=== PATIENT | female | born 1975 | race Caucasian/White ===

== ENCOUNTER 2023-07-18 21:01 | Emergency (ER) | payer OTHER, SELFPAY ==
[2023-07-18 21:04] VITALS: BP 152/110
[2023-07-18 21:43] VITALS: BMI 36.7
--- NOTE | 2023-07-18 21:45 | ED.GENMED ---
History of Present Illness
General
Chief Complaint: Dental Problem
Source: patient
Exam Limitations: none
Time Seen by Provider: 07/18/23 21:17
Nursing documentation reviewed up to this point in time: agreed with
Travel History
Have you had any contact with someone who has COVID-19?: No
Do you have any symptoms of coronavirus? Fever > 100 degrees, chills, cough, shortness of breath, sore throat, loss of taste or smell, muscle aches, or headache?: No
History of Present Illness
History of Present Illness:
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
rinses, woke up around 6 PM from a nap with increased facial swelling
Patient recently diagnosed type 2 diabetes, started on metformin 2000 mg a day
Past History
Past History
ED Past Medical History: NIDDM and Other
ED Past Surgical History: None
Social History
Tobacco: Non-smoker
Alcohol: None
Drug: None
Living: with family
Employment: Employed
Family History
Family History: Negative Diabetes, Hypertension or CAD
Review of Systems
Review of Systems
All Other Systems: Not applicable
Constitutional: Denies fever or fatigue
EENT: Reports mouth pain and other (Dental pain facial swelling)
Phy Exam
Physical Exam
Physical Exam:
Physical Exam
General: no apparent distress, not acutely ill
Neck: Left-sided facial swelling, no trismus, tender to tap with some missing posterior oral lateral tooth and the second lower molar question small gum abscess no elevation of the tongue
Heart: s1/s2 regular rate and rhythm, no murmur. equal radial pulses.
Lungs: no acute respiratory distress.
Neuro: alert and oriented. no focal neurological deficits
Skin: no rash
Psychiatric: well kept. interactive and cooperative
Extremities: no edema.
Course
Vital Signs
Initial and Last Documented VS:
Initial Vital Signs
Temp Pulse Resp BP Pulse Ox
98.7 F 136 24 152/110 98
07/18/23 21:04 07/18/23 21:04 07/18/23 21:04 07/18/23 21:04 07/18/23 21:04
Last Documented Vital Signs
Temp Pulse Resp BP Pulse Ox
98.7 F 136 24 180/91 98
07/18/23 21:04 07/18/23 21:04 07/18/23 21:04 07/18/23 21:46 07/18/23 21:04
Procedures
Dentalgia
Dental Block: Infiltration
Bupivacaine 0.5%/Epi Dental cartridge administered?: Yes
Tooth Number: 18
Abcess drained?: Yes
Pt tolerated procedure well w/ no immediate adverse effects?: Yes
Other: 11. Blade large amount of pus patient tolerated well
MDM/Problems Addressed
Differential Diagnosis Includes:
Dental caries dental abscess
MDM/Problems Addressed:
Facial pain dental pain
Chronic conditions affecting care: DM
Acute Exacerbation and/or Progression of Chronic Illness: DM
*Pulse Oximetry
Patient hypoxic: no
*Critical Care Note
Total Time (30-74mins, 75-104mins- exclusive of procedures): Not Applicable
Update Note
Update Note:
Patient tolerated incision and drainage, only had 2 doses of Augmentin we will continue, follow-up with her dentist or oral surgery ER for worsening symptoms
ED Attending Note
-
Portions of this chart may have been created with voice recognition software.� Occasional wrong word or��sound alike� substitutions may have occurred due to the inherent limitations of voice recognition software.
Discharge Plan
Departure
Date of Disposition: 07/18/23
Time of Disposition: 22:00
Patient with high blood pressure during this ER visit?: No
Condition: Good
Covid-19: Not Applicable
Prescriptions:
No Action
cyclobenzaprine 10 MG tablet
10 mg PO HS
dextroamphetamine-amphetamine 10 MG tablet
10 mg PO DAILY
alprazolam 0.25 MG tablet
0.25 mg PO DAILY
dicyclomine 20 MG tablet
10 mg PO HS
lorazepam 2 MG tablet
2 mg PO HS
ranitidine HCl [Zantac] 150 MG tablet
300 mg PO HS
celecoxib 200 MG capsule
200 mg PO PRN PRN (Reason: pain)
metformin 500 MG tablet
500 mg PO PRN PRN (Reason: pt doesn't take on a reg basis)
cholecalciferol (vitamin D3) 50,000 UNIT capsule
50,000 unit PO WEEKLY
vortioxetine [Trintellix] 10 MG tablet
10 mg PO HS
Depo Injection
1 ml .EVERY 3 MONTHS
hydrocodone-acetaminophen 1 TABLET tablet
1 tab PO Q4HPRN PRN (Reason: pain) Qty: 25 0RF
Rx Instructions:
can increase to 2 every 4h for severe pain
albuterol sulfate [ProAir HFA] 90 mcg/actuation Hfa Aerosol Inhaler
1 puff INHALATION Q4HPRN PRN (Reason: shortness of breath) Qty: 8.5 0RF
doxycycline hyclate 100 mg capsule
100 mg PO BID Qty: 14 0RF
prednisone 50 mg Tablet
50 mg PO DAILY Qty: 5 0RF
Interventions
Interventions:
*Risk Screen - Suicide Last Done: 07/18/23 21:43
*General Assessment Last Done: 07/18/23 21:43
*Neglect/Abuse Screening Last Done: 07/18/23 21:43
ED- Fall Risk Assessment Last Done: 07/18/23 21:43
*ED COVID-19 Vaccine History Last Done: 07/18/23 21:43
Discharge Date and Time
Print Language: MONGOLIAN
[2023-07-18 21:46] VITALS: BP 180/91
[2023-07-18] MEDS: ROXICODONE 5 MG PO (22:51)
== END 2023-07-18 22:55 | disposition home or self-care (01) ==
LOC: EMR 21:01
PROVIDERS: EMERGENCY PHYSICIAN Emergency Medicine; FAMILY PHYSICIAN Nurse Practitioner Adult Health
DX: K04.7 Periapical abscess without sinus (principal); K08.89 Other specified disorders of teeth and supporting structures; R51.9 Headache, unspecified; E11.9 Type 2 diabetes mellitus without complications; E28.2 Polycystic ovarian syndrome; M79.7 Fibromyalgia; F41.9 Anxiety disorder, unspecified; E55.9 Vitamin D deficiency, unspecified; K58.9 Irritable bowel syndrome, unspecified; Z86.16 Personal history of COVID-19; Z87.11 Personal history of peptic ulcer disease; Z90.49 Acquired absence of other specified parts of digestive tract; Z88.1 Allergy status to other antibiotic agents; Z91.040 Latex allergy status
CPT/HCPCS: 99284; 64400; 41800

== ENCOUNTER 2023-07-19 17:34 | Emergency (ER) | payer OTHER, SELFPAY ==
[2023-07-19 17:35] VITALS: BP 138/94
--- NOTE | 2023-07-19 18:17 | ED.GENMED ---
History of Present Illness
General
Chief Complaint: Facial Problem
Source: patient
Exam Limitations: none
Time Seen by Provider: 07/19/23 18:00
Nursing documentation reviewed up to this point in time: agreed with
Travel History
Have you had any contact with someone who has COVID-19?: No
Do you have any symptoms of coronavirus? Fever > 100 degrees, chills, cough, shortness of breath, sore throat, loss of taste or smell, muscle aches, or headache?: No
History of Present Illness
History of Present Illness:
48-year-old female past medical history of migraines vertigo diabetes PCOS presenting to the emergency department today with concerns of ongoing dental abscess to the left mandible here yesterday for similar symptoms had this drained but worsened
today. Has taken 2 doses of Augmentin since. Some mild trouble swallowing some lightheadedness nausea.
Past History
Past History
ED Past Medical History: NIDDM and Other
ED Past Surgical History: None
Social History
Tobacco: Non-smoker
Alcohol: None
Drug: None
Living: with family
Employment: Employed
Family History
Family History: Negative Diabetes, Hypertension or CAD
Review of Systems
Review of Systems
Allergies reviewed?: Yes
All Other Systems: ROS reviewed and negative except as documented in HPI and ROS
Phy Exam
Physical Exam
Physical Exam:
GENERAL: Alert , in no apparent distress
EYE: pupils equal and reactive
NECK: Supple, no significant adenopathy.
ENT: Significant swelling to the left lateral mandibular region tenderness palpation to the area normal posterior pharynx no Kira's mild trismus o/p clr, mmm.
CARDIAC: Regular rate and rhythm .
LUNGS: Clear breath sounds bilaterally, no acute respiratory distress, no wheezes/rales/rhonchi
ABDOMEN: Soft, without focal tenderness, no r/g, no cvat
NEUROLOGICAL: Alert and oriented, no focal neuro deficits
SKIN: Warm and dry, skin intact.
MUSCULOSKELETAL: No edema, well perfused.
PSYCH: Normal and appropriate interaction.
Course
Orders/Labs/Results
Orders:
Orders
07/19/23 18:10
Ketorolac [Toradol] 30 mg IV NOW STA
07/19/23 18:16
BMP [Basic Metabolic Panel] Urgent
CBC/With Diff [Complete Blood Count/With Diff] Urgent
07/19/23 18:21
Ampicillin/Sulbactam 3 G [Unasyn] 3 gm 0.9% Sodium Chloride 100 ml [Nss] 100 ml IV NOW
07/19/23 18:59
Morphine Sulfate 4 mg IV NOW STA
Abnormal Lab Results
07/19/23
18:16
WBC 14.2 H 10^3/uL
(4.8-10.8)
MCH 31.6 H pg
(27.0-31.0)
Abs Immat Gran (auto) 0.1 H 10^3/uL
(0-0.05)
Absolute Neuts (auto) 10.0 H 10^3/uL
(1.4-6.5)
Absolute Monos (auto) 1.1 H 10^3/uL
(0.1-0.6)
Lymphocytes % 20.4 L %
(20.5-51.1)
Glucose 162 H mg/dl
(70-99)
07/19/23 18:16
07/19/23 18:16
Vital Signs
Initial and Last Documented VS:
Initial Vital Signs
Temp Pulse Resp BP Pulse Ox
99.8 F 108 16 138/94 97
07/19/23 17:35 07/19/23 17:35 07/19/23 17:35 07/19/23 17:35 07/19/23 17:35
Last Documented Vital Signs
Temp Pulse Resp BP Pulse Ox
98.9 F 105 20 122/71 97
07/19/23 19:37 07/19/23 19:37 07/19/23 19:37 07/19/23 19:37 07/19/23 19:37
Procedures
Incision/Drainage/Joint Aspiration
Left mandible:
Anethesia: 1% Lidocaine (2) and other (Inferior alveolar block)
Type of procedure: incise and aspiration
Nature of site: abscess
Description of abscess: greater than 3cm
Loculations broken up: Yes
How much fluid was obtained?: large amount
Fluid description: purulent and bloody
Treatment: left open for drainage
MDM/Problems Addressed
MDM/Problems Addressed:
48-year-old female presenting to the emergency department today with concerns of ongoing dental abscess drained yesterday but ongoing today. Now having lightheadedness nausea some mild trouble swallowing. Labs showing slight white count of 14.2
initial heart rate was elevated but improving after receiving some fluids and pain medication. Other labs unremarkable. Patient had a dental block placed and then incision and drainage of abscess to the left mandibular region. Swelling did not
improve able to fully open her mouth normal posterior pharynx. Patient was given IV dose of antibiotics and otherwise feels well for outpatient she was advised to return for any worsening or progressive symptoms.
*Critical Care Note
Total Time (30-74mins, 75-104mins- exclusive of procedures): Not Applicable
ED Attending Note
-
Portions of this chart may have been created with voice recognition software.� Occasional wrong word or��sound alike� substitutions may have occurred due to the inherent limitations of voice recognition software.
Discharge Plan
Departure
Patient Disposition: Home (Routine Discharge)
Date of Disposition: 07/19/23
Time of Disposition: 21:25
Patient with high blood pressure during this ER visit?: No
Condition: Good
Covid-19: Not Applicable
Discharge Problem:
Dental infection
Instructions: Tooth Abscess (DC)
Prescriptions:
No Action
metformin 500 MG tablet
1,000 mg PO BID
medroxyprogesterone [Depo-Provera Contraceptive] 150 mg/mL Suspension
150 mg IM [id number] Qty: 0
fluoxetine [Prozac] 40 mg Capsule
40 mg PO DAILY
oxcarbazepine 150 mg Tablet
150 mg PO BID
trazodone 50 mg Tablet
50 mg PO HS
ibuprofen 800 mg Tablet
800 mg PO BIDPRN PRN (Reason: mild pain)
metoprolol succinate [Toprol XL] 25 mg Tablet Extended Release 24 Hr
25 mg PO BID
dicyclomine [Bentyl] 10 mg Capsule
10 mg PO HS
amoxicillin-pot clavulanate [Augmentin] 875-125 mg Tablet
1 tab PO BID
cholecalciferol (vitamin D3) [Vitamin D3] 25 mcg (1,000 unit) Tablet
25 mcg PO DAILY
Referrals:
UNKNOWN - PT DOES,NOT KNOW [Family Provider] -
Activity Restrictions/Additional Instructions:
You came to the emergency department today with concerns of ongoing swelling to your jaw from a dental infection.. Here you had a reassuring assessment. Please continue taking antibiotics and return for any worsening symptoms. Otherwise please
make sure you control your sugar well and drink plenty of water.
Interventions
Interventions:
*Risk Screen - Suicide Last Done: 07/19/23 18:40
*General Assessment Last Done: 07/19/23 20:47
*Neglect/Abuse Screening Last Done: 07/19/23 18:40
*ED COVID-19 Vaccine History Last Done: 07/19/23 20:49
ED- Neurological Assessment Last Done: 07/19/23 19:38
ED-Skin Assessment Last Done: 07/19/23 19:39
Discharge Date and Time
Print Language: ITALIAN
[2023-07-19 18:23] LABS: % Basophils 0.6 % (0-2); % Immature Granulocytes 0.4 % (0-0.5); % Lymphocytes 20.4 % (20.5-51.1); % Monocytes 7.4 % (1.7-9.3); % Neutrophils 70.2 % (42.2-75.2); Absolute Basophils 0.1 10^3/uL (0-0.2); Absolute Eosinophils 0.1 10^3/uL (0-0.7); Absolute Immature Granulocytes 0.1 10^3/uL (0-0.05); Absolute Lymphocytes 2.9 10^3/uL (1.2-3.4); Absolute Monocytes 1.1 10^3/uL (0.1-0.6); Hematocrit 41.1 % (37.0-47.0); Hemoglobin 14.9 g/dL (12.0-16.0); Mean Corp Hgb Conc. 36.3 g/dL (33.0-37.0); Mean Corpuscular Hgb 31.6 pg (27.0-31.0); Mean Corpuscular Volume 87.1 fL (81.0-99.0); Mean Platelet Volume 9.4 fL (7.4-10.4); Nucleated Red Blood Cells % 0 %; Platelet Count 398 10^3/uL (130-400); Red Blood Cell Count 4.72 10^6/uL (4.20-5.40); Red Cell Dist. Width 12.5 % (11.5-14.5); White Blood Cell Count 14.2 10^3/uL (4.8-10.8)
[2023-07-19] MEDS: TORADOL 30 MG IV (18:23)
[2023-07-19] MEDS: UNASYN IV (18:27)
[2023-07-19 18:46] LABS: Blood Urea Nitrogen 11 mg/dl (7-17); Calcium 9.7 mg/dl (8.4-10.2); Carbon Dioxide 24 mmol/L (22-30); Chloride 106 mmol/L (98-107); Glucose 162 mg/dl (70-99); Potassium 3.9 mmol/L (3.5-5.1); Sodium 139 mmol/L (135-145); eGFR > 60.00
[2023-07-19] MEDS: MORPHINE SULFATE 4 MG IV (19:28)
[2023-07-19 19:37] VITALS: BP 122/71
[2023-07-19 21:29] VITALS: BP 119/75
[2023-07-19 22:08] VITALS: BP 119/75
== END 2023-07-19 22:09 | disposition home or self-care (01) ==
LOC: EMR 17:34
PROVIDERS: Physician Assistant; EMERGENCY PHYSICIAN Emergency Medicine
DX: K04.7 Periapical abscess without sinus (principal)
CPT/HCPCS: 99284; 64400; 96365; 96375 ×2; 41800; 80048; 85025

== ENCOUNTER 2023-07-21 01:04 | Inpatient (IN) | payer OTHER, SELFPAY ==
[2023-07-20 20:09] VITALS: BP 146/88
--- NOTE | 2023-07-20 20:48 | ED.GENMED ---
History of Present Illness
<CADENCE Ham - Last Filed: 07/20/23 23:58>
General
Chief Complaint: Swelling
Source: patient
Exam Limitations: none
Time Seen by Provider: 07/20/23 20:32
Travel History
Have you had any contact with someone who has COVID-19?: No
Do you have any symptoms of coronavirus? Fever > 100 degrees, chills, cough, shortness of breath, sore throat, loss of taste or smell, muscle aches, or headache?: No
History of Present Illness
History of Present Illness:
This is a 48 year old female that comes in with c/o left sided facial swelling. States that this is her third visit here. State that she was here Thursday, Thursday and now today. States that she has had the left lower gum drained and was place on
antibiotics. States that today she feels that the swelling is getting worse and is going down into her throat. State that swallowing is difficult. States that now she is nauseated and starting with a Migraine. States that she also has slight
Diarrhea and feels like her eye's cant focus. State that her temp at home was 99.9. Denies any chills, chest pain, SOB, abd pain, vomiting, urinary burning.
Past History
<CADENCE Ham - Last Filed: 07/20/23 23:58>
Past History
ED Past Medical History: NIDDM and Other (Migraines, Vertigo, IBS, Ulcers, PCOS, Vit D Def, Reactive airway, Tachycardia)
ED Past Surgical History: Cholecystectomy and (With tubal)
Social History
Tobacco: Former smoker
Alcohol: Occasional
Drug: None
Personal:
Living: with family
Employment: Employed
Family History
Family History: Negative Diabetes, Hypertension or CAD
Review of Systems
<CADENCE Ham - Last Filed: 07/20/23 23:58>
Review of Systems
All Other Systems: ROS reviewed and negative except as documented in HPI and ROS
Constitutional: Reports fever (low grade); Denies chills
EENT: Reports other (Left lower gum swelling)
Respiratory: Reports no symptoms; Denies cough
Cardiac: Reports no symptoms; Denies chest pain
ABD/GI: Reports nausea and diarrhea (Slight); Denies abdominal pain or vomiting
: Reports no symptoms; Denies dysuria, frequency or urgency
Musculoskeletal: Reports no symptoms
Skin: Reports no symptoms
Neurological: Reports headache and other (Feels like eyes can't focus)
Psychiatric: Reports no symptoms
Phy Exam
<CADENCE Ham - Last Filed: 07/20/23 23:58>
General Physical Exam
General Presentation: no apparent distress
General age: appears stated age
General Skin: warm and dry
General Habitus: normal
General Mental: alert
General Hydration: appears well hydrated
ENT Exam
ENT Exam: TM's normal, pharynx normal, neck supple and other (Left lower gum line swollen with facial swelling)
Eye Exam
Eye Exam: EOMI
Cardiovascular Exam
Cardiovascular Exam: regular rate/rhythm, no edema, no murmur and normal peripheral pulses
Pulmonary Exam
Pulmonary Exam: lungs clear, no respiratory distress, no rales, chest non tender, no crackles, no rhonchi, no wheezing and no cough
Gastrointestinal Exam
Gastrointestinal Exam: normal bowel sounds, non tender, soft, no organomegaly, no pulsatile mass and non distended
Musculoskeletal Exam
Musculoskeletal Exam: full ROM
Skin Exam
Skin Exam: normal color, warm/dry, no rash and no petechia
Psychiatric Exam
Psychiatric Exam: normal mood/affect
Scores
<CADENCE Ham - Last Filed: 05/27/24 23:58>
Heart Failure Risk
Heart Failure Risk Score: Not Applicable
Course
<CADENCE Ham - Last Filed: 07/20/23 23:58>
Orders/Labs/Results
Orders:
Orders
07/20/23 20:44
[address] Bones w Contrast CT [CT Facial Bones W/ Iv Contrast] Urgent
Comment: r/o abscess
Reason For Exam: Left sided facial swelling into thoat
Test Result ONCE
07/20/23 21:07
Complete Blood Count/With Diff Urgent
Comprehensive Metabolic Panel Urgent
HCG, Serum Qualitative Screen Urgent
Lactic Acid Urgent
07/20/23 23:52
Clindamycin 300 mg IVPB NOW Clindamycin Phosphate [Cleocin] 300 mg 0.9% Sodium Chloride [Nss] 50 ml IV NOW
Abnormal Lab Results
07/20/23
21:07
WBC 11.4 H 10^3/uL
(4.8-10.8)
MCH 31.4 H pg
(27.0-31.0)
Abs Immat Gran (auto) 0.1 H 10^3/uL
(0-0.05)
Absolute Neuts (auto) 7.8 H 10^3/uL
(1.4-6.5)
Absolute Monos (auto) 0.9 H 10^3/uL
(0.1-0.6)
07/20/23 21:07
07/20/23 21:07
Leukocytosis, HCG negative
Vital Signs
Initial and Last Documented VS:
Initial Vital Signs
Temp Pulse Resp BP Pulse Ox
98.6 F 99 20 146/88 98
07/20/23 20:09 07/20/23 20:09 07/20/23 20:09 07/20/23 20:09 07/20/23 20:09
Last Documented Vital Signs
Temp Pulse Resp BP Pulse Ox
98.6 F 89 20 112/70 98
07/20/23 20:09 07/20/23 23:35 07/20/23 20:09 07/20/23 23:35 07/20/23 23:35
<Collins Lu MD - Last Filed: 07/20/23 21:29>
Orders/Labs/Results
Orders:
Orders
07/20/23 20:44
[address] Bones w Contrast CT [CT Facial Bones W/ Iv Contrast] Urgent
Comment: r/o abscess
Reason For Exam: Left sided facial swelling into thoat
Test Result ONCE
07/20/23 21:07
Complete Blood Count/With Diff Urgent
Comprehensive Metabolic Panel Urgent
HCG, Serum Qualitative Screen Urgent
Lactic Acid Urgent
07/20/23 23:52
Clindamycin 300 mg IVPB NOW Clindamycin Phosphate [Cleocin] 300 mg 0.9% Sodium Chloride [Nss] 50 ml IV NOW
Abnormal Lab Results
07/20/23
21:07
WBC 11.4 H 10^3/uL
(4.8-10.8)
MCH 31.4 H pg
(27.0-31.0)
Abs Immat Gran (auto) 0.1 H 10^3/uL
(0-0.05)
Absolute Neuts (auto) 7.8 H 10^3/uL
(1.4-6.5)
Absolute Monos (auto) 0.9 H 10^3/uL
(0.1-0.6)
07/20/23 21:07
07/20/23 21:07
Vital Signs
Initial and Last Documented VS:
Initial Vital Signs
Temp Pulse Resp BP Pulse Ox
98.6 F 99 20 146/88 98
07/20/23 20:09 07/20/23 20:09 07/20/23 20:09 07/20/23 20:09 07/20/23 20:09
Last Documented Vital Signs
Temp Pulse Resp BP Pulse Ox
98.6 F 89 20 112/70 98
07/20/23 20:09 07/20/23 23:35 07/20/23 20:09 07/20/23 23:35 07/20/23 23:35
<CADENCE Ham - Last Filed: 07/20/23 23:58>
MDM/Problems Addressed
Differential Diagnosis Includes:
Dental abscess, facial abscess
MDM/Problems Addressed:
This is a 48 year old female that comes in with c/o left sided facial swelling. States that this is the third time here for the same thing. Patient is on antibiotics but feels that she is getting worse and that the swelling is going down into her
throat. States that she has difficulty swallowing.
Will get labs, CT facial for abscess.
Back into see patient. Explained that she would be admitted as the CT shows a facial cellulitis with abscess. Hospitalist notified. Will start IV antibiotics.
Chronic conditions affecting care: DM
Acute Exacerbation and/or Progression of Chronic Illness: DM
<CADENCE Ham - Last Filed: 07/20/23 23:58>
*Radiology
Radiology exam reviewed: radiology read reviewed (CT night hawk- Soft tissue swelling in the left face compatible with facial cellulitis. Abutting the left mandible and there is an 11X2mm rin-enhancing focus likely representing an early abscess. )
*Pulse Oximetry
Patient hypoxic: no
*EKG
Interpreted by ED Provider?: NA
Rate: EKG- N/A
*Critical Care Note
Total Time (30-74mins, 75-104mins- exclusive of procedures): Not Applicable
ED Attending Note
<CADENCE Ham - Last Filed: 07/20/23 23:58>
-
Portions of this chart may have been created with voice recognition software.� Occasional wrong word or��sound alike� substitutions may have occurred due to the inherent limitations of voice recognition software.
<Collins Lu MD - Last Filed: 07/20/23 21:29>
ED Attending Note
Patient seen and examined by attending physician: Yes
I performed the substantive portion of visit, reviewed & personally made and approve the management plan that is documented in note by myself or LAURA.: Yes
ED Attending Note:
48-year-old female had a cracked left lower molar that has been there for 4 months. However it was not causing pain until 2 to 3 days ago. She came and then had her periodontal abscess drained. Redrained yesterday. Has been on antibiotics.
Worsening symptoms today. Some swelling down towards the neck.
On exam patient is nontoxic in no distress. She has a cracked left lower posterior molar. There is gum swelling along the buccal mucosa with induration. She has mild swelling of the lower mandible. Mild swelling down towards the left neck.
There is no severe neck swelling she has no trismus no drooling no stridor. Speech is normal. Workup in progress including CT
Discharge Plan
Departure
Patient Disposition: Admit
Date of Disposition: 07/20/23
Time of Disposition: 23:56
Admit to: Med/Surg
Presentation/result/management discussed w/ accepting MD/DO: Hospitalist
Patient with high blood pressure during this ER visit?: No
Condition: Good
Covid-19: Not Applicable
Discharge Problem:
Cellulitis and abscess of face
Prescriptions:
No Action
metformin 500 MG tablet
1,000 mg PO BID
medroxyprogesterone [Depo-Provera Contraceptive] 150 mg/mL Suspension
150 mg IM [id number] Qty: 0
fluoxetine [Prozac] 40 mg Capsule
40 mg PO DAILY
oxcarbazepine 150 mg Tablet
150 mg PO BID
trazodone 50 mg Tablet
50 mg PO HS
ibuprofen 800 mg Tablet
800 mg PO BIDPRN PRN (Reason: mild pain)
metoprolol succinate [Toprol XL] 25 mg Tablet Extended Release 24 Hr
25 mg PO BID
dicyclomine [Bentyl] 10 mg Capsule
10 mg PO HS
amoxicillin-pot clavulanate [Augmentin] 875-125 mg Tablet
1 tab PO BID
cholecalciferol (vitamin D3) [Vitamin D3] 25 mcg (1,000 unit) Tablet
25 mcg PO DAILY
Referrals:
Tatyana Neumann CRNP [Family Provider] -
Interventions
Interventions:
*Risk Screen - Suicide Last Done: 07/20/23 20:09
*General Assessment Last Done: 07/20/23 20:09
*Neglect/Abuse Screening Last Done: 07/20/23 20:09
ED- Pulmonary Assessment Last Done: 07/20/23 23:36
ED-Skin Assessment Last Done: 07/20/23 21:18
Discharge Date and Time
Print Language: LUXEMBOURGISH
[2023-07-20 21:09] VITALS: BP 143/80
[2023-07-20 21:21] LABS: % Basophils 0.6 % (0-2); % Eosinophils 1.1 % (0-6); % Immature Granulocytes 0.4 % (0-0.5); % Lymphocytes 22.1 % (20.5-51.1); % Monocytes 7.5 % (1.7-9.3); % Neutrophils 68.3 % (42.2-75.2); Absolute Basophils 0.1 10^3/uL (0-0.2); Absolute Eosinophils 0.1 10^3/uL (0-0.7); Absolute Immature Granulocytes 0.1 10^3/uL (0-0.05); Absolute Lymphocytes 2.5 10^3/uL (1.2-3.4); Absolute Monocytes 0.9 10^3/uL (0.1-0.6); Absolute Neutrophils 7.8 10^3/uL (1.4-6.5); Hematocrit 39.5 % (37.0-47.0); Hemoglobin 13.9 g/dL (12.0-16.0); Mean Corp Hgb Conc. 35.2 g/dL (33.0-37.0); Mean Corpuscular Hgb 31.4 pg (27.0-31.0); Mean Corpuscular Volume 89.4 fL (81.0-99.0); Mean Platelet Volume 9.7 fL (7.4-10.4); Nucleated Red Blood Cells % 0 %; Platelet Count 363 10^3/uL (130-400); Red Blood Cell Count 4.42 10^6/uL (4.20-5.40); Red Cell Dist. Width 12.3 % (11.5-14.5); White Blood Cell Count 11.4 10^3/uL (4.8-10.8)
[2023-07-20 21:33] LABS: HCG, Serum Qualitative Screen Negative; Lactic Acid 1.2 mmol/L (0.7-2.0)
[2023-07-20 21:40] LABS: ALT (SGPT) 18 U/L (0-35); AST (SGOT) 21 U/L (14-36); Albumin 3.9 g/dl (3.5-5.0); Alkaline Phosphatase 80 U/L (38-126); Blood Urea Nitrogen 11 mg/dl (7-17); Calcium 9.5 mg/dl (8.4-10.2); Carbon Dioxide 23 mmol/L (22-30); Chloride 105 mmol/L (98-107); Glucose 99 mg/dl (70-99); Potassium 3.5 mmol/L (3.5-5.1); Sodium 138 mmol/L (135-145); Total Bilirubin 0.6 mg/dl (0.2-1.3); Total Protein 6.5 g/dl (6.3-8.2); eGFR > 60.00
[2023-07-20 23:32] VITALS: BP 112/70
[2023-07-20 23:35] VITALS: BP 112/70
[2023-07-21] MEDS: CLEOCIN 52 MG IV (00:18)
--- NOTE | 2023-07-21 00:32 | W.PN.UPDATE ---
Addendum entered and electronically signed by Deonte Gonzalez MD 07/21/23 00:39:
Wrong entry : cancelled note
<del>Nigh</del> <del>hawk</del> <del>read</del> <del>on</del> <del>HCT</del> <del>per</del> <del>ER</del> <del>STORE PROTECTION SPECIALIST</del>
<del>-</del> <del>small</del> <del>SDH</del> <del>seems</del> <del>subacute</del> <del>sustained</del> <del>during</del> <del>fall</del> <del>at</del> <del[facility]del> <del[facility]</del> <del>?</del>
<del>-</del> <del>ER</del> <del>STORE PROTECTION SPECIALIST</del> <del>d/w</del> <del>Neuro</del> <del>surgery</del> <del>-</del> <del>suggest</del> <del>cont</del> <del>to</del> <del>monitor</del> <del>at</del> <del>[facility]</del>
<del>-</del> <del>Change</del> <del>leval</del> <del>of</del> <del>care</del> <del>to</del> <del>[facility]U</del>
<del>-</del> <del>Neuro</del> <del>surgeon</del> <del>consult</del>
<del>Case</del> <del>informed</del> <del>to</del> <del>family</del> <del>and</del> <del>patient</del> <del>at</del> <del>bed</del> <del>side</del> <del>with</del> <del>ER</del> <del>STORE PROTECTION SPECIALIST</del>
Original Note:
Update Note
Progress Note Update
Meme jean-baptiste read on HCT per ER STORE PROTECTION SPECIALIST
- small SDH seems subacute sustained during fall at [facility] ?
- ER STORE PROTECTION SPECIALIST d/w Neuro surgery - suggest cont to monitor at
- Change leval of care to IMU
- Neuro surgeon consult
Case informed to family and patient at bed side with ER STORE PROTECTION SPECIALIST
--- NOTE | 2023-07-21 00:51 | HPS.HSE ---
Addendum entered and electronically signed by Deonte Gonzalez MD 07/21/23 12:55:
Correction :
Scratched note below due to wrong entry
<del>07/20/23</del> <del>CT</del> <del>AP</del>
<del>Relatively</del> <del>similar</del> <del>exam</del> <del>in</del> <del>comparison</del> <del>to</del> <del>recent</del> <del>CT</del> <del>06/10/2023,</del> <del>with</del> <del>fluid</del> <del>collection</del> <del>containing</del>
<del>gas</del> <del>and</del> <del>with</del> <del>rim</del> <del>enhancement</del> <del>in</del> <del>the</del> <del>left</del> <del>upper</del> <del>quadrant</del> <del>adjacent</del> <del>to</del> <del>the</del> <del>stomach,</del>
<del>suspicious</del> <del>for</del> <del>abscess,</del> <del>possibly</del> <del>chronic</del> <del>gastric</del> <del>perforation</del> <del>with</del> <del>possible</del> <del>fistulization</del> <del>to</del> <del>the</del> <del>abdominal</del>
<del>wall,</del> <del>status</del> <del>post</del> <del>drainage</del> <del>catheter</del> <del>removal.</del>
<del>Consider</del> <del>repeat</del> <del>imaging</del> <del>with</del> <del>positive</del> <del>oral</del> <del>contrast</del> <del>to</del> <del>assess</del> <del>for</del> <del>leak.</del> <del>Surgical</del> <del>consultation</del>
<del>also</del> <del>recommended.</del>
<del>-</del> <del>IR</del> <del>and</del> <del>CRS</del> <del>consulted</del>
Addendum entered and electronically signed by Deonte Gonzalez MD 07/21/23 04:58:
07/20/23 CT AP
Relatively similar exam in comparison to recent CT 06/10/2023, with fluid collection containing gas and with rim enhancement in the left upper quadrant adjacent to the stomach, suspicious for abscess, possibly chronic gastric perforation with
possible fistulization to the abdominal wall, status post drainage catheter removal.
Consider repeat imaging with positive oral contrast to assess for leak. Surgical consultation also recommended.
- IR and CRS consulted
Original Note:
Family Physician
-
Family Physician: CADENCE Hart
Chief Complaint
-
Face swelling
History of Present Illness
HPI
48F HX IBS, T2DM seen at ER for the 3rd visit for evaluation of Lt face swelling
Lt face swelling
- 2 back to back ER visit on 07/17 & 07/18 for Dental infection treated with PO Augmentin
- return to ER for worsening facial swelling
- associated dysphagia and nausea
- report low grade T 99 at home but no chills
Medical History
Past Medical History
Past Medical History: Reports Other
Additional Past Medical History:
NIDDM and Other (Migraines, Vertigo, IBS, Ulcers, PCOS, Vit D Def, Reactive airway, Tachycardia)
Past Surgical History: Reports Cholecystectomy and Gynocological (C section )
Social History
Tobacco: Former Smoker
Alcohol: Occasional
Personal:
Living: With Family
Family History
Family History: Not pertinent
Allergies / Home Medications
Allergies reflects when Allergies were last updated in [facility].
Home Medications with original date entered in [employer] 1699
Allergy/Medication List:
Allergies
Allergy/AdvReac Type Severity Reaction Status Date / Time
erythromycin base Allergy fast heart Verified 07/20/23 20:09
[Erythromycin Base] beat, SOB
latex Allergy RASH,ITCHIN Verified 07/20/23 20:09
G
Home Medications
medroxyprogesterone 150 mg/mL intramuscular suspension 150 mg IM [id number] ##0 03/25/16
metformin 500 mg tablet 1,000 mg PO BID 03/25/16
amoxicillin 875 mg-potassium clavulanate 125 mg tablet 1 tab PO BID 07/19/23
cholecalciferol (vitamin D3) 25 mcg (1,000 unit) tablet (Vitamin D3) 25 mcg PO DAILY 07/19/23
dicyclomine 10 mg capsule 10 mg PO HS 07/19/23
fluoxetine 40 mg capsule (Prozac) 40 mg PO DAILY 07/19/23
ibuprofen 800 mg tablet 800 mg PO BIDPRN PRN mild pain 07/19/23
metoprolol succinate 25 mg tablet,extended release 24 hr (Toprol XL) 25 mg PO BID 07/19/23
oxcarbazepine 150 mg tablet 150 mg PO BID 07/19/23
trazodone 50 mg tablet 50 mg PO HS 07/19/23
Review of Systems
-
Constitutional: Reports No Symptoms
EENT: Reports See HPI
Respiratory: Reports No Symptoms
Cardiac: Reports No Symptoms
Abdomen/GI: Reports No Symptoms
: Reports No Symptoms
Musculoskeletal: Reports No Symptoms
Skin: Reports No Symptoms
Neurological: Reports No Symptoms
Endocrine: Reports No Symptoms
Hematologic/Lymphatic: Reports No Symptoms
Psych: Reports No Symptoms
Physical Exam
Vital Signs
Vital Signs
Temp Pulse Resp BP Pulse Ox
98.6 F 89 20 112/70 98
07/20/23 20:09 07/20/23 23:35 07/20/23 20:09 07/20/23 23:35 07/20/23 23:35
Physical Exam
General: No Apparent Distress, Comfortable and Conversant
HEENT: Other (Left lower gum line swollen with facial swelling)
Respiratory: Clear
Cardiac: S1/S2 and Regular Rhythm
Breast: Deferred by me
GI: Soft, Non Tender, Non Distended and Normal Bowel Sounds
Genito-urinary: Deferred by me
Musculoskeletal: No Edema
Skin: Warm and Dry
Neuro: AO x 3
Psych: Calm
Laboratory Results
-
07/20/23 21:07
07/20/23 21:07
Laboratory Results
Lactic Acid 1.2 mmol/L (0.7-2.0) 07/20/23 21:07
Total Bilirubin 0.6 mg/dl (0.2-1.3) 07/20/23 21:07
AST 21 U/L (14-36) 07/20/23 21:07
ALT 18 U/L (0-35) 07/20/23 21:07
Alkaline Phosphatase 80 U/L (38-126) 07/20/23 21:07
Data Reviewed
-
CT Scan: Report Reviewed by me
Lab Data: Labs Reviewed by me
Old Records: Reviewed
Impression/Plan
-
Reviewed VS: Afebrile otherwise unremarkable
Data
WCC 11.4
unremarkable CMP
Face CT w IV contrast
soft tissue swelling c/w facial cellulitis with likely early abscess
ASSESSMENT & PLAN
Lt Face cellulitis with possible early abscess
Asso. leucocytosis
- Empiric IV Unasyn in place of PO Augmentin
- f/u T and WCC
- Tylenol PRN
T2DM
- held Metformin
- add ISS low
Essential HTN
- cont. Metoprolol succinate
Depression/ Anxiety
- cont STATION CHIEF Prozac, Trazodone
IBS
- on Bentyl HS
DVT Px: LMWH
Code: Full code
IP MS
[2023-07-21 01:38] VITALS: BP 129/75
[2023-07-21 02:05] VITALS: BP 129/75
--- NOTE | 2023-07-21 02:10 | PTCARENOTE ---
Pt rec'd to floor awake and alert; able to walk to bed from hallway. Swelling of lt face noted. No difficulty swallowing. No resp distress. Pleasant and cooperative.
[2023-07-21 02:12] VITALS: BMI 36.7
[2023-07-21 02:15] VITALS: BP 153/90
[2023-07-21] MEDS: TYLENOL 650 MG PO ×2 (02:53→07:57)
[2023-07-21] MEDS: UNASYN IV ×3 (03:11→13:28)
[2023-07-21] MEDS: FLUSH (NSS) 2 FLUSH IV (03:11)
[2023-07-21 07:24] VITALS: BP 129/74
[2023-07-21 07:41] LABS: Hematocrit 37.7 % (37.0-47.0); Hemoglobin 13.3 g/dL (12.0-16.0); Mean Corp Hgb Conc. 35.3 g/dL (33.0-37.0); Mean Corpuscular Hgb 31.5 pg (27.0-31.0); Mean Corpuscular Volume 89.3 fL (81.0-99.0); Mean Platelet Volume 9.8 fL (7.4-10.4); Platelet Count 349 10^3/uL (130-400); Red Blood Cell Count 4.22 10^6/uL (4.20-5.40); Red Cell Dist. Width 12.5 % (11.5-14.5); White Blood Cell Count 10.5 10^3/uL (4.8-10.8)
[2023-07-21] MEDS: TRILEPTAL 150 MG PO (08:16)
[2023-07-21] MEDS: PROZAC 40 MG PO (08:16)
[2023-07-21] MEDS: TOPROL XL 25 MG PO (08:16)
[2023-07-21 08:39] LABS: Glucose - Point of Care 105 mg/dl (70-99)
[2023-07-21 09:00] LABS: Glycohemoglobin (HgbA1c) 6.6 % (4.0-5.6)
--- NOTE | 2023-07-21 09:33 | W.PN.HOSP.TC ---
Today's Communication/Plan
-
Discharge
Assessment / Plan
Assessment / Plan
Gen-AAOx3, NAD
HEENT-NC, AT, anicteric, clear oral mm
Neck-supple
CV-reg, no M, +S1/S2
Lungs-clear B/L
Abd-soft, NT, ND
Ext-no edema
Musculoskeletal-no cyanosis, clubbing
Skin-warm and dry
Neuro-grossly non-focal
Psych-calm, cooperative
Left facial cellulitis -due to underlying dental infection. Improving. White blood cell count normalized. Afebrile. Resume Augmentin on discharge. Can discharge this afternoon.
Left first mandibular molar infection - no abscess noted on CT scan. Needs follow-up with oral surgery this week. Encourage patient to call this morning for appointment.
DM2 without hyperglycemia -resume metformin. Hemoglobin A1c 6.6%.
Essential hypertension -stable.
IBS
anxiety/depression
Obesity due to excess calories
Full code
Dispo - stable for discharge this afternoon. Follow-up with PCP and oral surgery.
Anticipated Discharge: Today
Subjective/Interval History
-
Date of Service: July 21, 2023
Patient seen and examined. Feeling better. Dental achiness.
Objective Data
-
Labs:
Laboratory Results
07/20/23 07/21/23
21:07 07:10
WBC 10.5
Hgb 13.3
Hct 37.7
Plt Count 349
Sodium 138
Potassium 3.5
Chloride 105
Carbon Dioxide 23
BUN 11
Creatinine 0.7
Glucose 99
Calcium 9.5
Total Bilirubin 0.6
AST 21
ALT 18
Alkaline Phosphatase 80
Vital Signs:
Vital Signs
Temp Pulse Resp BP Pulse Ox
98.2 F 91 12 129/74 97
07/21/23 07:24 07/21/23 07:24 07/21/23 07:24 07/21/23 07:24 07/21/23 07:24
I&O
07/20/23 07/21/23 07/22/23
06:59 06:59 06:59
Intake Total 580 / 580
Balance 580 / 580
Review of Systems
-
History Source: Patient
All other systems: Reviewed and negative
--- NOTE | 2023-07-21 09:41 | W.DS.TRANS ---
DC Summary - Lapidarist
-
Discharge Instructions:
Discharge Diagnosis/Procedures Left first mandibular molar infection, left
facial cellulitis
Diet Diabetic, Carb Controlled
Activity As tolerated
Driving Restrictions As prior to admission
Bathing Restrictions None
Instructions:
Stand-Alone Forms:
Changes to Home Medications: No
Discharge Medications:
DC Medications w/original date entered in [employer]
medroxyprogesterone 150 mg/mL intramuscular suspension 150 mg IM [id number] ##0 03/25/16
metformin 500 mg tablet 1,000 mg PO BID 03/25/16
amoxicillin 875 mg-potassium clavulanate 125 mg tablet 1 tab PO BID 07/19/23
cholecalciferol (vitamin D3) 25 mcg (1,000 unit) tablet (Vitamin D3) 25 mcg PO DAILY 07/19/23
dicyclomine 10 mg capsule 10 mg PO HS 07/19/23
fluoxetine 40 mg capsule (Prozac) 40 mg PO DAILY 07/19/23
ibuprofen 800 mg tablet 800 mg PO BIDPRN PRN mild pain 07/19/23
metoprolol succinate 25 mg tablet,extended release 24 hr (Toprol XL) 25 mg PO BID 07/19/23
oxcarbazepine 150 mg tablet 150 mg PO BID 07/19/23
trazodone 50 mg tablet 50 mg PO HS 07/19/23
Home Medication Changes
Pending Results: No
[2023-07-21] MEDS: MOTRIN 800 MG PO (10:15)
--- NOTE | 2023-07-21 11:27 | CM ---
Patient seen with , initial assessment completed. Patient resides with her spouse in a multiple story home, three steps to enter. Patient denies DME, VN, or SNF history. Patient confirms PCP Tatyana Neumann, pharmacy [facility],
confirms prescription coverage. Patient reports no needs upon discharge. Patient reports she will transport herself home or her will if needed. CM will continue to follow for discharge planning needs.
Plan; home no needs.
[2023-07-21 12:11] LABS: Glucose - Point of Care 142 mg/dl (70-99)
[2023-07-21 14:14] VITALS: BP 122/80
== END 2023-07-21 15:19 | disposition home or self-care (01) | DRG 158 ==
LOC: 4 WEST ACU 01:04
PROVIDERS: Clinical Nurse Specialist Family Health; ADMITTING PHYSICIAN Internal Medicine; ATTENDING PHYSICIAN Hospitalist; EMERGENCY PHYSICIAN Emergency Medicine; FAMILY PHYSICIAN Nurse Practitioner Adult Health
DX: K04.7 Periapical abscess without sinus (principal); L02.01 Cutaneous abscess of face; L03.211 Cellulitis of face; G43.909 Migraine, unspecified, not intractable, without status migrainosus; E11.65 Type 2 diabetes mellitus with hyperglycemia; E28.2 Polycystic ovarian syndrome; E55.9 Vitamin D deficiency, unspecified; K58.9 Irritable bowel syndrome, unspecified; R13.10 Dysphagia, unspecified; I10 Essential (primary) hypertension; F32.A Depression, unspecified; F41.9 Anxiety disorder, unspecified; Z79.84 Long term (current) use of oral hypoglycemic drugs; Z87.891 Personal history of nicotine dependence; Z88.1 Allergy status to other antibiotic agents; Z91.040 Latex allergy status
CPT/HCPCS: 70487; 80053; 82962; 83036; 83605; 84703; 85025; 85027; 96374; 99285; Q9967

== ENCOUNTER 2023-08-18 17:44 | Emergency (ER) | payer OTHER, SELFPAY ==
[2023-08-18 17:47] VITALS: BP 149/100
[2023-08-18 18:14] LABS: % Eosinophils 2.9 % (0-6); % Immature Granulocytes 0.3 % (0-0.5); % Lymphocytes 34.1 % (20.5-51.1); % Monocytes 8.1 % (1.7-9.3); % Neutrophils 53.6 % (42.2-75.2); Absolute Basophils 0.1 10^3/uL (0-0.2); Absolute Eosinophils 0.3 10^3/uL (0-0.7); Absolute Lymphocytes 3.9 10^3/uL (1.2-3.4); Absolute Monocytes 0.9 10^3/uL (0.1-0.6); Absolute Neutrophils 6.2 10^3/uL (1.4-6.5); Hematocrit 44.1 % (37.0-47.0); Hemoglobin 15.9 g/dL (12.0-16.0); Mean Corp Hgb Conc. 36.1 g/dL (33.0-37.0); Mean Corpuscular Hgb 30.7 pg (27.0-31.0); Mean Corpuscular Volume 85.1 fL (81.0-99.0); Mean Platelet Volume 9.6 fL (7.4-10.4); Nucleated Red Blood Cells % 0 %; Platelet Count 399 10^3/uL (130-400); Red Blood Cell Count 5.18 10^6/uL (4.20-5.40); Red Cell Dist. Width 11.9 % (11.5-14.5); White Blood Cell Count 11.5 10^3/uL (4.8-10.8)
[2023-08-18 18:30] LABS: ALT (SGPT) 30 U/L (0-35); AST (SGOT) 41 U/L (14-36); Albumin 4.9 g/dl (3.5-5.0); Alkaline Phosphatase 65 U/L (38-126); Blood Urea Nitrogen 15 mg/dl (7-17); Calcium 10.6 mg/dl (8.4-10.2); Carbon Dioxide 23 mmol/L (22-30); Chloride 104 mmol/L (98-107); Glucose 113 mg/dl (70-99); Lipase 180 U/L (23-300); Potassium 3.9 mmol/L (3.5-5.1); Sodium 140 mmol/L (135-145); Total Bilirubin 0.7 mg/dl (0.2-1.3); Total Protein 7.7 g/dl (6.3-8.2); eGFR > 60.00
[2023-08-18 18:41] LABS: Troponin I < 0.012 ng/ml
--- NOTE | 2023-08-18 19:17 | ED.GENMED ---
History of Present Illness
General
Chief Complaint: Abdominal Symptoms
Source: patient
Exam Limitations: none
Time Seen by Provider: 08/18/23 19:16
Nursing documentation reviewed up to this point in time: agreed with
History of Present Illness
History of Present Illness:
48-year-old female with history of migraines, vertigo, IBS, stomach ulcers, PCOS, NIDDM, anxiety, bipolar presents stating for past 10 days has had worsening epigastric pains, nausea, decreased appetite, black tarry stools, can't get comfortable
sitting or laying due to epigastric pain. Has tried TUMS, Pepto Bismol with no relief.
Denies fever or chills. Denies chest pain or trouble breathing.
In May she was diagnosed with type 2 diabetes mellitus, was put on metformin and ever since she has had 'a little stomach pain here and there,' and 'every once in a while a dark stool.'
1 month ago she was on 3 different antibiotics for tooth pain, abscess and developed a UTI
Initially she was given Macrobid which the organism was not sensitive to so now she is on her sixth of seventh day of Augmentin
Past History
Past History
ED Past Medical History: NIDDM and Other (Migraines, Vertigo, IBS, Ulcers, PCOS, Vit D Def, Reactive airway, Tachycardia)
ED Past Surgical History: Cholecystectomy and (With tubal)
Social History
Tobacco: Former smoker
Alcohol: Occasional
Drug: None
Personal:
Living: with family
Employment: Employed
Family History
Family History: Negative Diabetes, Hypertension or CAD
Review of Systems
Review of Systems
Allergies reviewed?: Yes
All Other Systems: ROS reviewed and negative except as documented in HPI and ROS
Constitutional: Denies fever or chills
Respiratory: Denies trouble breathing
Cardiac: Denies chest pain
ABD/GI: Reports abdominal pain, nausea, black stools and anorexia; Denies vomiting, diarrhea or bloody stools
: Denies dysuria, frequency or difficulty voiding
Musculoskeletal: Reports no symptoms
Skin: Reports no symptoms
Neurological: Reports no symptoms
Phy Exam
Physical Exam
Physical Exam:
GENERAL: No acute distress. A&Ox3.
CONSTITUTIONAL: Afebrile.
EYES: clear, conjunctivae normal
ENMT: moist mucus membranes, Pharynx nl
RESPIRATORY: Regular respirations, nonlabored, lungs clear.
CARDIOVASCULAR: Regular rate and rhythm, no murmurs, no rubs.
GI: Soft, obese, generally tender (all quadrants), no specific area more tender, normal BS
MUSCULOSKELETAL: Moves with ease. Well perfused.
SKIN: Warm, dry, pink
PSYCH: Normal mood and affect. Well kept, interactive and appropriate
NEUROLOGIC: Awake, alert and oriented. No focal neurological deficits
Course
Orders/Labs/Results
Orders:
Orders
08/18/23 17:52
Electrocardiogram (*1) Urgent
Reason for Study: Abdominal Pain
EKG- Treatment ONCE
08/18/23 18:06
Complete Blood Count/With Diff Urgent
Comprehensive Metabolic Panel Urgent
Lipase Urgent
Troponin I Urgent
Abnormal Lab Results
08/18/23
18:06
WBC 11.5 H 10^3/uL
(4.8-10.8)
Absolute Lymphs (auto) 3.9 H 10^3/uL
(1.2-3.4)
Absolute Monos (auto) 0.9 H 10^3/uL
(0.1-0.6)
Glucose 113 H mg/dl
(70-99)
Calcium 10.6 H mg/dl
(8.4-10.2)
AST 41 H U/L
(14-36)
08/18/23 18:06
08/18/23 18:06
Vital Signs
Initial and Last Documented VS:
Initial Vital Signs
Temp Pulse Resp BP Pulse Ox
98.7 F 108 16 149/100 96
08/18/23 17:47 08/18/23 17:47 08/18/23 17:47 08/18/23 17:47 08/18/23 17:47
Last Documented Vital Signs
Temp Pulse Resp BP Pulse Ox
98.7 F 95 18 140/95 95
08/18/23 17:47 08/18/23 19:49 08/18/23 19:49 08/18/23 19:49 08/18/23 19:49
MDM/Problems Addressed
Differential Diagnosis Includes:
PUD, gastritis
MDM/Problems Addressed:
48-year-old female with history of migraines, vertigo, IBS, stomach ulcers, PCOS, NIDDM, anxiety, bipolar presents stating for past 10 days has had worsening epigastric pains, nausea, decreased appetite, black tarry stools, can't get comfortable
sitting or laying due to epigastric pain. Has tried TUMS, Pepto Bismol with no relief.
Denies fever or chills. Denies chest pain or trouble breathing.
In May she was diagnosed with type 2 diabetes mellitus, was put on metformin and ever since she has had 'a little stomach pain here and there,' and 'every once in a while a dark stool.'
1 month ago she was on 3 different antibiotics for tooth pain, abscess and developed a UTI
Initially she was given Macrobid which the organism was not sensitive to so now she is on her sixth of seventh day of Augmentin
Pt workup here is basically unremarkable
Abdomen generally tender, pt has no GB, liver enzymes normal, normal bowel sounds. Pain is mainly epigastric, Lipase normal, nothing in workup or exam to explain symptoms.
Pt asking about ulcers, 'how about an ultrasound?' explained to her that peptic ulcer cannot be seen on US, she would need GI to directly visualize via endoscopy. Referred her to GI.
Explained results show nothing worrisome, rectal exam neg for blood
Upon discharge pt upset because 'I'm in pain and no one is listening to me.' 'I know there's something wrong'
Offered CT abdomen but she refused, 'I'll just sign AMA papers.' states 'I just want to leave.'
Pt was smiling with the nurse at discharge, ambulated out with normal gait.
*Critical Care Note
Total Time (30-74mins, 75-104mins- exclusive of procedures): Not Applicable
ED Attending Note
-
Portions of this chart may have been created with voice recognition software.� Occasional wrong word or��sound alike� substitutions may have occurred due to the inherent limitations of voice recognition software.
Discharge Plan
Departure
Patient Disposition: Home (Routine Discharge)
Date of Disposition: 08/18/23
Time of Disposition: 19:46
Patient with high blood pressure during this ER visit?: No
Condition: Good
Discharge Problem:
Epigastric abdominal pain
Instructions: Gastritis, Motley Diet, Abdominal Pain
Prescriptions:
New
pantoprazole [Protonix] 40 mg tablet,delayed release (DR/EC)
40 mg PO DAILY Qty: 30 0RF
No Action
metformin 500 MG tablet
1,000 mg PO BID
medroxyprogesterone 150 mg/mL Suspension
150 mg IM [id number] Qty: 0
fluoxetine [Prozac] 40 mg Capsule
40 mg PO DAILY
oxcarbazepine 150 mg Tablet
150 mg PO BID
trazodone 50 mg Tablet
50 mg PO HS
ibuprofen 800 mg Tablet
800 mg PO BIDPRN PRN (Reason: mild pain)
metoprolol succinate [Toprol XL] 25 mg Tablet Extended Release 24 Hr
25 mg PO BID
dicyclomine 10 mg Capsule
10 mg PO HS
amoxicillin-pot clavulanate 875-125 mg Tablet
1 tab PO BID
cholecalciferol (vitamin D3) [Vitamin D3] 25 mcg (1,000 unit) Tablet
25 mcg PO DAILY
Referrals:
Sumit Ugarte MD [Active] - Next open appointment
Activity Restrictions/Additional Instructions:
As we discussed, your lab work shows nothing worrisome.
Your rectal exam shows no sign of blood at this time.
Pepto Bismol will make your stool dark
I sent a prescription to your pharmacy for Protonix. Let the GI doctor know if it helps
Call GI doctor and make next available appointment
Interventions
Interventions:
*Risk Screen - Suicide Last Done: 08/18/23 19:30
*General Assessment Last Done: 08/18/23 17:47
*Neglect/Abuse Screening Last Done: 08/18/23 19:30
ED- Fall Risk Assessment Last Done: 08/18/23 20:09
*ED COVID-19 Vaccine History Last Done: 08/18/23 17:47
*Nursing Disposition Last Done: 08/18/23 20:09
QO-Zumnbq-[id number] Assessment Last Done: 08/18/23 19:30
Discharge Date and Time
Discharge Date/Time: 08/18/23 20:10
Print Language: ESTONIAN
[2023-08-18 19:49] VITALS: BP 140/95
== END 2023-08-18 20:10 | disposition home or self-care (01) ==
LOC: EMR 17:44
PROVIDERS: Emergency Medicine; EMERGENCY PHYSICIAN Emergency Medicine; FAMILY PHYSICIAN Nurse Practitioner Adult Health
DX: R10.13 Epigastric pain (principal); R11.0 Nausea; G43.909 Migraine, unspecified, not intractable, without status migrainosus; K58.9 Irritable bowel syndrome, unspecified; E28.2 Polycystic ovarian syndrome; E11.9 Type 2 diabetes mellitus without complications; F41.9 Anxiety disorder, unspecified; F31.9 Bipolar disorder, unspecified; N39.0 Urinary tract infection, site not specified; E55.9 Vitamin D deficiency, unspecified; M79.7 Fibromyalgia; Z90.49 Acquired absence of other specified parts of digestive tract; Z87.11 Personal history of peptic ulcer disease; Z86.16 Personal history of COVID-19; Z87.891 Personal history of nicotine dependence; Z79.84 Long term (current) use of oral hypoglycemic drugs; Z88.1 Allergy status to other antibiotic agents; Z91.040 Latex allergy status
CPT/HCPCS: 99283; 80053; 83690; 84484; 85025; 93005

== ENCOUNTER 2024-03-15 15:28 | Emergency (ER) | payer OTHER, SELFPAY ==
[2024-03-15 16:00] VITALS: BP 144/98
--- NOTE | 2024-03-15 17:04 | ED.SKININJ ---
HPI-Injury
General
Chief Complaint: Bite
Source: patient
Exam Limitations: none
Time Seen by Provider: 03/15/24 16:49
Nursing documentation reviewed up to this point in time: agreed with
History of Present Illness-Injury
Is this injury a work related problem?: No
Is pt an associate of [facility]?: No
Initial Injury comments:
This is a 48-year-old female with past medical history of migraines, IBS who presents to the emergency department today with concerns of a dog bite. 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
mailman and potentially bite him. She went to go hold the dog back and when this happened, her dog bit her in the nose. She states that her dog was hanging from her nose at one point. She has a border [facility] who is up-to-date on its vaccinations
including rabies. Patient states that she had a tetanus vaccine in November 2023. She states that she started to have bleeding from the site of injury and some burning pain but otherwise she has not had bleeding from the inside of the nose itself,
she denies any other injuries.
Past History
Past History
ED Past Medical History: NIDDM and Other (Migraines, Vertigo, IBS, Ulcers, PCOS, Vit D Def, Reactive airway, Tachycardia)
ED Past Surgical History: Cholecystectomy and (With tubal)
Social History
Tobacco: Former smoker
Alcohol: Occasional
Drug: None
Personal:
Living: with family
Employment: Employed
Family History
Family History: Negative Diabetes, Hypertension or CAD
Review of Systems
Review of Systems
All Other Systems: ROS reviewed and negative except as documented in HPI and ROS
Phy Exam
Physical Exam
Physical Exam:
General: Patient is well appearing and in no acute distress; non-toxic
Skin: 1.5 cm macerated area of skin overlying the right nare with no active bleeding
Head: Normocephalic, atraumatic
Eyes: Sclera non-icteric. EOMs intact.
Nose: Mild tenderness to palpation of the nasal bones but no palpable deformity, no palpable step-off. No septal hematoma.
Cardiac: Regular rate
Peripheral Vascular: No lower extremity swelling or edema
Pulm: Normal respiratory effort
Neuro: CN II-XII intact, no focal neurologic deficits.
Psychiatric: Appropriate mood and affect.
Course
Vital Signs
Initial and Last Documented VS:
Initial Vital Signs
Temp Pulse Resp BP Pulse Ox
99.2 F 100 16 144/98 100
03/15/24 16:00 03/15/24 16:00 03/15/24 16:00 03/15/24 16:00 03/15/24 16:00
Last Documented Vital Signs
Temp Pulse Resp BP Pulse Ox
99.2 F 100 16 144/98 100
03/15/24 16:00 03/15/24 16:00 03/15/24 16:00 03/15/24 16:00 03/15/24 16:00
MDM/Problems Addressed
Differential Diagnosis Includes:
Differentials include abrasion, laceration, nasal bone fracture
MDM/Problems Addressed:
48-year-old female presents emergency department today with concerns of about dog bite to the nose. See HPI. On physical exam there is a 1.5 cm macerated area of skin overlying the right nare with no active bleeding. There is complete tissue loss
with nothing to suture. Did provide patient with a follow-up with plastic surgery to help monitor tissue healing. Do not suspect a deeper laceration involving the cartilage. Patient will be started prophylactically on Augmentin. Patient stable
for discharge.
Chronic conditions affecting care:
Migraines, IBS
*Pulse Oximetry
Patient hypoxic: no
*Critical Care Note
Total Time (30-74mins, 75-104mins- exclusive of procedures): Not Applicable
Data Reviewed
Review of Other/Old Records Reveals: Records (Reviewed ER physician documentation from 08/18/2023, patient seen for epigastric abdominal pain and discharge, reviewed discharge summary from 07/21/2023 patient seen for facial cellulitis)
Source: patient and records
Prescriptions/Medications Considered But Not Given:
N/A
Further Testing Considered But Not Given:
N/A
Patient Management
Escalation/DeEscalation of care consider admission/obs:
Admit not indicated, patient stable for discharge, case reviewed with my attending
ED Attending Note
-
Portions of this chart may have been created with voice recognition software.� Occasional wrong word or��sound alike� substitutions may have occurred due to the inherent limitations of voice recognition software.
Discharge Plan
Departure
Patient Disposition: Home (Routine Discharge)
Date of Disposition: 03/15/24
Time of Disposition: 17:56
Patient with high blood pressure during this ER visit?: Yes
Condition: Good
Discharge Problem:
Dog bite of nose
Instructions: Animal Bites (DC), Wound Care (DC), BLOOD PRESSURE
Prescriptions:
New
amoxicillin-pot clavulanate 875-125 mg tablet
1 tab PO BID 7 Days Qty: 14 0RF
No Action
metformin 500 MG tablet
1,000 mg PO BID
medroxyprogesterone 150 mg/mL Suspension
150 mg IM [id number] Qty: 0
fluoxetine [Prozac] 40 mg Capsule
40 mg PO DAILY
oxcarbazepine 150 mg Tablet
150 mg PO BID
trazodone 50 mg Tablet
50 mg PO HS
ibuprofen 800 mg Tablet
800 mg PO BIDPRN PRN (Reason: mild pain)
metoprolol succinate [Toprol XL] 25 mg Tablet Extended Release 24 Hr
25 mg PO BID
dicyclomine 10 mg Capsule
10 mg PO HS
amoxicillin-pot clavulanate 875-125 mg Tablet
1 tab PO BID
cholecalciferol (vitamin D3) [Vitamin D3] 25 mcg (1,000 unit) Tablet
25 mcg PO DAILY
pantoprazole [Protonix] 40 mg tablet,delayed release (DR/EC)
40 mg PO DAILY Qty: 30 0RF
Referrals:
Tatyana Neumann CRNP [Family Provider] -
Lance Bradshaw, [Active] - Call in 1-3 days for appt
Activity Restrictions/Additional Instructions:
We have given you a referral for a plastic surgeon. I recommend setting up an appointment for further evaluation to help monitor healing.
Augmentin has been sent to your pharmacy. Please take one tablet twice daily for 7 days.
PLEASE RETURN EMERGENCY DEPARTMENT SHOULD YOU DEVELOP FEVERS OR CHILLS, PURULENT DRAINAGE FROM THE WOUND, NAUSEA OR VOMITING, REDNESS OR SWELLING TRAVELING UP THE FACE, OR ANY OTHER SIGNS OR SYMPTOMS CONCERNING TO YOU.
Interventions
Interventions:
*Risk Screen - Suicide Last Done: 03/15/24 16:00
*General Assessment Last Done: 03/15/24 16:00
*Neglect/Abuse Screening Last Done: 03/15/24 16:00
*ED COVID-19 Vaccine History Last Done: 03/15/24 16:00
*Nursing Disposition Last Done: 03/15/24 18:19
ED-Skin Assessment Last Done: 03/15/24 17:38
Discharge Date and Time
Discharge Date/Time: 03/15/24 18:19
Print Language: SERBIAN
== END 2024-03-15 18:19 | disposition home or self-care (01) ==
LOC: EMR 15:28
PROVIDERS: EMERGENCY PHYSICIAN Emergency Medicine; FAMILY PHYSICIAN Nurse Practitioner Adult Health
DX: S01.25XA Open bite of nose, initial encounter (principal); W54.0XXA Bitten by dog, initial encounter; E11.9 Type 2 diabetes mellitus without complications; Z87.891 Personal history of nicotine dependence
CPT/HCPCS: 99283

== ENCOUNTER 2024-04-09 02:11 | Emergency (ER) | payer OTHER, SELFPAY ==
[2024-04-09 02:24] VITALS: BP 124/93
[2024-04-09 02:29] VITALS: BMI 34.0
[2024-04-09] MEDS: TYLENOL 1000 MG PO (02:29)
[2024-04-09 02:50] LABS: COVID-19 Antigen Negative (Negative)
[2024-04-09 03:24] VITALS: BP 125/67
--- NOTE | 2024-04-09 03:58 | ED.GENMED ---
History of Present Illness
General
Chief Complaint: Breathing Problem
Source: patient
Exam Limitations: none
Time Seen by Provider: 04/09/24 03:49
Nursing documentation reviewed up to this point in time: agreed with
History of Present Illness
History of Present Illness:
This is a 48-year-old woman who has history of inh-obncafe-[id number] diabetes, migraine headaches, irritable bowel syndrome. She complains of 4-day history of hacking nonproductive cough, intermittent chills and aches with onset of intermittent
dizziness tonight and worsening cough which prompted ED visit. She did work throughout the day yesterday, April 08.
No history of lung disease but did have episode of wheezing requiring albuterol inhaler 1 year ago with viral URI.
She did receive influenza vaccine this year.
No recent travel.
She denies chest pain, no abdominal pain, no nausea no vomiting, no leg pain or swelling.
Denies risk of .
Noted to be febrile upon arrival 101.1 �F. Given Tylenol at 2:30 AM.
Current temperature 99.9 �F.
Past History
Past History
ED Past Medical History: NIDDM and Other (Migraines, Vertigo, IBS, Ulcers, PCOS, Vit D Def, Reactive airway, Tachycardia)
ED Past Surgical History: Cholecystectomy and (With tubal)
Social History
Tobacco: Former smoker
Alcohol: Occasional
Drug: None
Personal:
Living: with family
Employment: Employed
Family History
Family History: Negative Diabetes, Hypertension or CAD
Phy Exam
Physical Exam
Physical Exam:
GENERAL: 48-year-old woman appears her stated age, bright and alert, pleasant, appears in no acute distress. Frequent hacking nonproductive cough is noted. Able to speak in full sentences.
EYE: anicteric
NECK: Supple, nontender, no meningismus, no significant adenopathy.
ENT: posterior pharynx is very minimally injected without edema nor exudate nor ulcerations, Oral mucosa is moist. TM clear b/l, nares patent.
CARDIAC: Regular rate and rhythm. no murmur.
LUNGS: no acute respiratory distress, no wheezes/rales/rhonchi. Frequent hacking cough is noted.
ABDOMEN: Soft, nondistended, without focal tenderness, normoactive BS.
NEUROLOGICAL: Alert and oriented x3, no focal neuro deficits.
SKIN: Mildly hot to touch and dry, normal color, skin intact. No rash.
MUSCULOSKELETAL: No C/C/E. peripheral pulses are full and equal b/l. No palpable tenderness.
PSYCH: Normal and appropriate interaction.
Scores
Heart Failure Risk
Heart Failure Risk Score: Not Applicable
Course
Orders/Labs/Results
Orders:
Orders
04/09/24 02:25
Acetaminophen [Tylenol] 1,000 mg PO NOW STA
CXR2 [CR Chest - 2 Views ] Urgent
Comment:
Reason For Exam: cough and fever.
04/09/24 02:29
COVID-19 Antigen Urgent
Source: Nasal Swab
Influenza A+B Rapid Molecular Urgent
MIGUEL Source: Nasal Swab
Specimen Description:
04/09/24 03:57
Ibuprofen [Motrin] 800 mg PO NOW STA
Ipratropium/Albuterol Sulfate [Duoneb] 3 ml INH R NOW STA
Vital Signs
Temp: 99.9 F
Initial and Last Documented VS:
Initial Vital Signs
Resp
22
04/09/24 02:12
Last Documented Vital Signs
Temp Pulse Resp BP Pulse Ox
101.0 F H 104 18 125/67 97
04/09/24 02:19 04/09/24 03:24 04/09/24 03:24 04/09/24 03:24 04/09/24 03:24
MDM/Problems Addressed
Differential Diagnosis Includes:
4-day history of URI, febrile illness.
Concern for pneumonia, influenza, COVID-19, viral URI/bronchitis. Concern for exacerbation of reactive airway disease.
Chest x-ray is unremarkable. Clear lung holley. Normal heart size.
Rapid COVID is negative.
Influenza is positive for influenza A.
As symptoms began 4 days ago, Tamiflu at this point will not be helpful.
Will trial DuoNeb nebulizer for cough and will give ibuprofen now for continued low-grade fever.
Discussed importance of staying well-hydrated on a daily basis.
Continue Tylenol versus ibuprofen as needed for fever, aches.
Recommend importance of remaining home from work until fever free for 24 hours.
Prompt follow-up with PCP for recheck.
Chronic conditions affecting care: DM and Other (Reactive airway disease with URIs)
*Radiology
Radiology exam reviewed: preliminary read by ED provider (Chest x-ray is unremarkable. Clear lung holley.)
*Pulse Oximetry
Patient hypoxic: no
*Critical Care Note
Total Time (30-74mins, 75-104mins- exclusive of procedures): Not Applicable
ED Attending Note
-
Portions of this chart may have been created with voice recognition software.� Occasional wrong word or��sound alike� substitutions may have occurred due to the inherent limitations of voice recognition software.
Discharge Plan
Departure
Patient Disposition: Home (Routine Discharge)
Date of Disposition: 04/09/24
Time of Disposition: 04:04
Patient with high blood pressure during this ER visit?: No
Discharge Problem:
Influenza A
Instructions: Flu in adults - Discharge instructions
Prescriptions:
New
ipratropium-albuterol 0.5 mg-3 mg(2.5 mg base)/3 mL solution for nebulization
3 ml inhalation Q6H PRN (Reason: COUGH, WHEEZING) Qty: 180 0RF
(DME) nebulizer and compressor Device
See Rx Instructions .ROUTE Qty: 1 0RF
Rx Instructions:
As directed, with duoneb nebules QID prn
No Action
medroxyprogesterone 150 mg/mL Suspension
150 mg IM [id number] Qty: 0
fluoxetine [Prozac] 40 mg Capsule
40 mg PO DAILY
oxcarbazepine 150 mg Tablet
150 mg PO BID
trazodone 50 mg Tablet
50 mg PO HS
ibuprofen 800 mg Tablet
800 mg PO BIDPRN PRN (Reason: mild pain)
metoprolol succinate [Toprol XL] 25 mg Tablet Extended Release 24 Hr
12.5 mg PO BID
cholecalciferol (vitamin D3) [Vitamin D3] 25 mcg (1,000 unit) Tablet
25 mcg PO DAILY
Ozempic 2 mg/dose (8 mg/3 mL) Pen Injector
2 mg SC QWEEK
sumatriptan succinate [Imitrex] 50 mg Tablet
50 mg PO ONCE PRN (Reason: migraines)
albuterol sulfate [Ventolin HFA] 90 mcg/actuation Hfa Aerosol Inhaler
2 puff INHALATION Q6H PRN (Reason: wheezing)
Referrals:
Tatyana Neumann CRNP [Family Provider] - Call in 1-3 days for appt
Interventions
Interventions:
*Risk Screen - Suicide Last Done: 04/09/24 03:20
*General Assessment Last Done: 04/09/24 03:20
*Neglect/Abuse Screening Last Done: 04/09/24 03:20
ED- Fall Risk Assessment Last Done: 04/09/24 03:20
*ED COVID-19 Vaccine History Last Done: 04/09/24 02:24
ED- Cardiac Assessment Last Done: 04/09/24 03:20
ED- Pulmonary Assessment Last Done: 04/09/24 03:20
Discharge Date and Time
Print Language: ESTONIAN
[2024-04-09] MEDS: DUONEB 3 ML INH (04:05)
[2024-04-09] MEDS: MOTRIN 800 MG PO (04:05)
== END 2024-04-09 04:25 | disposition home or self-care (01) ==
LOC: EMR 02:11
PROVIDERS: EMERGENCY PHYSICIAN Emergency Medicine; FAMILY PHYSICIAN Nurse Practitioner Adult Health
DX: J10.1 Influenza due to other identified influenza virus with other respiratory manifestations (principal); E11.9 Type 2 diabetes mellitus without complications; Z11.52 Encounter for screening for COVID-19; Z87.891 Personal history of nicotine dependence
CPT/HCPCS: 99284; 94640; 71046; 87502; 87811

== ENCOUNTER 2024-11-02 15:37 | Emergency (ER) | payer OTHER, SELFPAY ==
[2024-11-02 15:41] VITALS: BP 162/91
[2024-11-02 15:42] VITALS: BP 162/91
[2024-11-02 16:01] LABS: Hematocrit 51.1 % (37.0-47.0); Hemoglobin 17.3 g/dL (12.0-16.0); Mean Corp Hgb Conc. 33.9 g/dL (33.0-37.0); Mean Corpuscular Volume 89.5 fL (81.0-99.0); Nucleated Red Blood Cells % 0 %; Platelet Count 376 10^3/uL (130-400); Red Cell Dist. Width 12.0 % (11.5-14.5)
[2024-11-02 16:08] LABS: APTT 26.5 Sec (23.4-35.0); INR 0.99; PT 13.6 Sec (11.4-14.6)
[2024-11-02 16:10] LABS: ALT (SGPT) 19 U/L (0-35); AST (SGOT) 24 U/L (14-36); Albumin 4.8 g/dl (3.5-5.0); Alkaline Phosphatase 87 U/L (38-126); Blood Urea Nitrogen 11 mg/dl (7-17); Calcium 9.8 mg/dl (8.4-10.2); Carbon Dioxide 24 mmol/L (22-30); Chloride 105 mmol/L (98-107); Glucose 98 mg/dl (70-99); Potassium 4.0 mmol/L (3.5-5.1); Sodium 138 mmol/L (135-145); Total Protein 7.7 g/dl (6.3-8.2); eGFR > 60.00
[2024-11-02 16:22] LABS: Troponin I < 0.012 ng/ml
[2024-11-02] MEDS: PLAVIX 300 MG PO (18:33)
[2024-11-02] MEDS: ASPIRIN 325 MG PO (18:33)
[2024-11-02 19:03] LABS: Urine Character Clear (Clear)
[2024-11-02 19:10] LABS: Urine Squamous Cell >30 /LPF (Few)
[2024-11-02 19:11] LABS: Urine White Cell 50-60 /HPF (0-5)
--- NOTE | 2024-11-02 19:32 | ED.CVA ---
History of Present Illness
General
Chief Complaint: CVA/TIA Symptoms
Source: patient and spouse
Exam Limitations: none
Time Seen by Provider: 11/02/24 15:43
Nursing documentation reviewed up to this point in time: agreed with
Onset of Stroke Symptoms
Onset of symptoms known: Yes
Date of onset of symptoms: 11/02/24
Time of onset of symptoms: 09:00
History of Present Illness
History of Present Illness:
Note:
CHIEF COMPLAINT(S)
Feeling of sudden dizziness, nausea, confusion, and weakness in the lower extremities and right arm.
HISTORY OF PRESENT ILLNESS
The patient is a 49-year-old female with a history of type 2 diabetes who experienced a sudden onset of dizziness, nausea, confusion, and weakness in the lower extremities and right arm while sitting at her workplace. Her blood glucose levels were
checked, showing a reading of 93 at home and 115 at work. Initially, the patient was globally aphasic and unable to articulate words correctly, a condition which resolved approximately two to three minutes after assistance arrived. Currently, she
reports feeling less confused but still notes weakness in her legs and extreme tiredness. This episode began earlier today, slightly after 2 PM, when the patient was at work and suddenly felt her energy drain significantly. She described the
sensation as the 'weirdest thing' and had not been feeling her best throughout the day prior to this episode.
PAST MEDICAL AND SURGICAL HISTORY
The patient mentioned having a cholecystectomy performed a few years ago due to gallbladder issues, during which inappropriate sinus tachycardia was noted, and no normal electrocardiogram readings could be obtained.
CHRONIC MEDICAL CONDITIONS SIGNIFICANTLY AFFECTING CARE
- Type 2 diabetes
- History of inappropriate sinus tachycardia
MEDICATIONS
The patient takes prescribed medications for blood pressure, cholesterol, and diabetes. Metformin was specifically mentioned for diabetes management.
PHYSICAL EXAM
General: Alert, no acute distress.
Skin: Warm, dry.
Head: Normocephalic, atraumatic.
Neck: Supple, trachea midline.
Eye, Ears, Nose, Mouth, and Throat: Oral mucosa moist.
Cardiovascular: Normal peripheral perfusion, No edema. tachycardia
Respiratory: Respirations are non-labored.
Gastrointestinal: Abdomen nondistended.
Back: Normal range of motion, Normal alignment.
Musculoskeletal: Normal range of motion, normal strength in upper extremities; noted weakness in lower extremities.
Neurological: Alert and oriented to person, place, time, and situation; initially exhibited aphasia that resolved, no focal neurological deficit observed.
Psychiatric: Cooperative, appropriate mood & affect.
PROBLEM LIST
Acute issues:
- Sudden onset of dizziness
- Nausea
- Confusion
- Weakness in lower extremities and right arm
Chronic issues:
- Type 2 diabetes
- Inappropriate sinus tachycardia
PLAN
- Order a computed tomography (CT) scan of the head.
- Perform blood tests.
- Conduct urine analysis.
- Electrocardiogram (ECG) to monitor heart function and determine any irregularities.
DIFFERENTIAL DIAGNOSIS
The Differential Diagnosis includes, in no particular order and is not limited to:
- Transient ischemic attack (TIA)
- Stroke
- Hypoglycemia or hyperglycemia
- Vasovagal response
- Cardiac arrhythmia
- Neurological disorder
- Orthostatic hypotension
- Infection (e.g., urinary tract infection)
- Dehydration
- Medication side effect
CARE-UPDATE
11/02/24 - 19:58
Patients symptoms have resolved. Neurology recommends initiating dual antiplatelet therapy. Discharge planned with follow-up appointments scheduled with neurology and primary care. Recent CT head and CT angiography of head and neck show no acute
findings.
EKG
My independent EKG interpretation is:
- Time of EKG: Not provided
- Rhythm: Sinus tachycardia
- Heart Rate: 112 bpm
- CT Interval: Normal
- QRS Duration: Normal
- QT Interval: Normal
- Dodson: Normal
- Abnormalities Observed: No signs of ischemia
Disposition:
SUMMARY OF ENCOUNTER
The patient, a 49-year-old female with a history of type 2 diabetes and inappropriate sinus tachycardia, presented to the emergency department with sudden symptoms of dizziness, nausea, confusion, and weakness in the lower extremities and right arm.
Her initial neurological impairment resolved quickly. Work-up included a CT scan of the head, CT angiography of the head and neck, and an electrocardiogram (EKG) that revealed sinus tachycardia but no acute findings or significant abnormalities.
Neurological assessment recommended starting dual antiplatelet therapy. Diagnosis was likely transient ischemic attack (TIA) ruled out by imaging and clinical improvement. No indicators suggested acute intervention with TNKase (tenecteplase) was
needed. Patient felt well enough to request discharge.
DISPOSITION
Discharge planned with follow-up appointments scheduled with neurology and primary care.
ASSESSMENT
Sudden, transient neurological symptoms likely represent a transient ischemic attack (TIA).
PLAN
Patient to be initiated on dual antiplatelet therapy. Discharged with instructions to follow up with primary care and neurology.
INDEPENDENT REVIEW OF LABS AND INTERPRETATION OF TESTS
My independent EKG interpretation is:
- Rhythm: Sinus tachycardia
- Heart Rate: 112 bpm
- No ischemic changes noted
My independent interpretation of the CT scan of the head and CT angiography shows no acute findings.
FOLLOW-UP INSTRUCTIONS
Scheduled follow-up appointments with neurology and primary care are necessary to manage ongoing care and ensure no further incidents.
MEDICATION RECONCILIATION
Prescribed dual antiplatelet therapy as per neurology recommendation.
MEDICAL DECISION MAKING
- Complexity of Data Reviewed: Chronic conditions affecting care: Type 2 diabetes, inappropriate sinus tachycardia. Differential includes transient ischemic attack (TIA), stroke, cardiac arrhythmia, neurological disorders, vasovagal syncope, among
others.
- Data:
Category 1: Tests ordered include CT scan of the head, CT angiography, EKG.
Category 3: Discussion with neurology for management including dual antiplatelet therapy.
-Risk:
Consideration of Admission/Observation: Escalation of care including admission/observation was considered given the complexity and risk of the patients presenting complaint and underlying comorbidities. However, ultimately the patient is deemed safe
for outpatient management with close follow-up. Reasoning: Work-up does not reveal any acute life/organ-threatening processes, symptoms have resolved, and patient is reliable for follow-up.
DIAGNOSIS
- Transient ischemic attack (TIA) (G45.9)
- Urinary tract infection, initial (N39.0)
Past History
Past History
ED Past Medical History: NIDDM and Other (Migraines, Vertigo, IBS, Ulcers, PCOS, Vit D Def, Reactive airway, Tachycardia)
ED Past Surgical History: Cholecystectomy and (With tubal)
Social History
Tobacco: Former smoker
Alcohol: Occasional
Drug: None
Personal:
Living: with family
Employment: Employed
Family History
Family History: Negative Diabetes, Hypertension or CAD
Phy Exam
Physical Exam
Physical Exam:
.
Course
Orders/Labs/Results
Orders:
Orders
11/02/24 15:44
Electrocardiogram (*1) Stat
Reason for Study: Other
Other Reason for Exam: neuro symptoms
Cardiac Monitoring- Treatment ONCE
EKG- Treatment ONCE
Pulse Ox/cont/shift [RESP] Stat
Quantity: 1
11/02/24 15:49
Complete Blood Count/With Diff Urgent
Comprehensive Metabolic Panel Urgent
PTT Urgent
Prothrombin Time Urgent
Troponin I Urgent
11/02/24 15:50
CT Head & Neck Angio W/wo IV Urgent
Comment:
Reason For Exam: right arm weakness, confusion, leg weakness
11/02/24 18:21
Urinalysis Reflex To Culture Urgent
Date Specimen was Collected: 11/02/24
Time Specimen was Collected: 18:20
Urine Microscopic Reflex Cult Urgent
Urine Culture Urgent
MIGUEL Source: U
Specimen Description:
Date Specimen was Collected: 11/02/24
Time Specimen was Collected: 18:20
11/02/24 18:23
Aspirin 325 mg PO NOW STA
Clopidogrel Bisulfate [Plavix] 300 mg PO NOW STA
11/02/24 19:31
Cephalexin Monohydrate [Keflex] 500 mg PO NOW STA
Abnormal Lab Results
11/02/24 11/02/24
15:49 18:21
WBC 11.3 H 10^3/uL
(4.8-10.8)
RBC 5.71 H 10^6/uL
(4.20-5.40)
Hgb 17.3 H g/dL
(12.0-16.0)
Hct 51.1 H %
(37.0-47.0)
Absolute Neuts (auto) 7.9 H 10^3/uL
(1.4-6.5)
Absolute Monos (auto) 0.9 H 10^3/uL
(0.1-0.6)
Urine Ketones 2+ A
(Negative)
Ur Occult Blood Reflex 2+ A
(Negative)
Leukocyte Esterase Rfl 3+ A
(Negative)
Urine RBC 3-6 A /HPF
(0-2)
Urine WBC (Reflex) 50-60 A /HPF
(0-5)
Urine Bacteria (Reflex) Moderate A
(Negative)
Urine Albumin (Reflex) 2+ A
(Neg - Trace)
11/02/24 15:49
11/02/24 15:49
Vital Signs
Initial and Last Documented VS:
Initial Vital Signs
Pulse Resp
104 18
11/02/24 15:40 11/02/24 15:40
Last Documented Vital Signs
Temp Pulse Resp BP Pulse Ox
98.2 F 119 18 162/91 97
11/02/24 15:42 11/02/24 15:45 11/02/24 15:42 11/02/24 15:42 11/02/24 19:32
*Pulse Oximetry
SaO2: 97
Oxygen Mode of Delivery: Room air
Patient hypoxic: no
*Critical Care Note
Total Time (30-74mins, 75-104mins- exclusive of procedures): Not Applicable
ED Attending Note
-
Portions of this chart may have been created with voice recognition software.� Occasional wrong word or��sound alike� substitutions may have occurred due to the inherent limitations of voice recognition software.
Discharge Plan
Departure
Patient Disposition: Home (Routine Discharge)
Date of Disposition: 11/02/24
Time of Disposition: 20:00
Patient with high blood pressure during this ER visit?: Yes
Condition: Good
Discharge Problem:
UTI (urinary tract infection), TIA (transient ischemic attack)
Instructions: Urinary tract infections in adults, Transient Ischemic Attack (DC), BLOOD PRESSURE
Prescriptions:
New
clopidogrel [Plavix] 75 mg tablet
75 mg PO DAILY Qty: 21 0RF
aspirin 325 mg tablet
325 mg PO DAILY Qty: 21 0RF
cephalexin 500 mg capsule
500 mg PO BID 7 Days Qty: 14 0RF
No Action
medroxyprogesterone 150 mg/mL Suspension
150 mg IM [id number] Qty: 0
fluoxetine [Prozac] 40 mg Capsule
40 mg PO DAILY
oxcarbazepine 150 mg Tablet
150 mg PO BID
trazodone 50 mg Tablet
50 mg PO HS
ibuprofen 800 mg Tablet
800 mg PO BIDPRN PRN (Reason: mild pain)
metoprolol succinate [Toprol XL] 25 mg Tablet Extended Release 24 Hr
12.5 mg PO BID
cholecalciferol (vitamin D3) [Vitamin D3] 25 mcg (1,000 unit) Tablet
25 mcg PO DAILY
Ozempic 2 mg/dose (8 mg/3 mL) Pen Injector
2 mg SC QWEEK
sumatriptan succinate [Imitrex] 50 mg Tablet
50 mg PO ONCE PRN (Reason: migraines)
albuterol sulfate [Ventolin HFA] 90 mcg/actuation Hfa Aerosol Inhaler
2 puff INHALATION Q6H PRN (Reason: wheezing)
ipratropium-albuterol 0.5 mg-3 mg(2.5 mg base)/3 mL solution for nebulization
3 ml inhalation Q6H PRN (Reason: COUGH, WHEEZING) Qty: 180 0RF
(DME) nebulizer and compressor Device
See Rx Instructions .Route Qty: 1 0RF
Rx Instructions:
As directed, with duoneb nebules QID prn
Referrals:
Tatyana Neumann CRNP [Family Provider, Internal Medicine]
Interventions
Interventions:
*Risk Screen - Suicide Last Done: 11/02/24 15:45
*General Assessment Last Done: 11/02/24 15:45
*Neglect/Abuse Screening Last Done: 11/02/24 15:45
*ED COVID-19 Vaccine History Last Done: 11/02/24 15:45
ED- Pulmonary Assessment Last Done: 11/02/24 15:46
ED- Neurological Assessment Last Done: 11/02/24 15:46
ED- Cardiac Assessment Last Done: 11/02/24 15:46
Discharge Date and Time
Print Language: SAMI
[2024-11-02] MEDS: KEFLEX 500 MG PO (19:52)
== END 2024-11-02 20:42 | disposition home or self-care (01) ==
LOC: EMR 15:37
PROVIDERS: EMERGENCY PHYSICIAN Emergency Medicine; FAMILY PHYSICIAN Nurse Practitioner Adult Health
DX: N39.0 Urinary tract infection, site not specified (principal); G45.9 Transient cerebral ischemic attack, unspecified; R03.0 Elevated blood-pressure reading, without diagnosis of hypertension; R00.0 Tachycardia, unspecified; E11.9 Type 2 diabetes mellitus without complications; G43.909 Migraine, unspecified, not intractable, without status migrainosus; K58.9 Irritable bowel syndrome, unspecified; E28.2 Polycystic ovarian syndrome; Z79.02 Long term (current) use of antithrombotics/antiplatelets; Z79.82 Long term (current) use of aspirin; Z79.84 Long term (current) use of oral hypoglycemic drugs; Z87.891 Personal history of nicotine dependence
CPT/HCPCS: 99284; 70496; 70498; 80053; 81003; 81015; 84484; 85025; 85610; 85730; 87086; 93005; Q9967

== ENCOUNTER 2024-11-16 18:48 | Emergency (ER) | payer OTHER, SELFPAY ==
[2024-11-16 18:50] VITALS: BP 195/97
[2024-11-16 19:18] LABS: Hematocrit 45.1 % (37.0-47.0); Hemoglobin 16.2 g/dL (12.0-16.0); Mean Corp Hgb Conc. 35.9 g/dL (33.0-37.0); Mean Corpuscular Volume 84.8 fL (81.0-99.0); Nucleated Red Blood Cells % 0 %; Platelet Count 374 10^3/uL (130-400); Red Cell Dist. Width 11.9 % (11.5-14.5)
[2024-11-16 19:31] LABS: ALT (SGPT) 17 U/L (0-35); AST (SGOT) 21 U/L (14-36); Albumin 4.5 g/dl (3.5-5.0); Alkaline Phosphatase 81 U/L (38-126); Blood Urea Nitrogen 14 mg/dl (7-17); Calcium 9.6 mg/dl (8.4-10.2); Carbon Dioxide 24 mmol/L (22-30); Chloride 106 mmol/L (98-107); Glucose 128 mg/dl (70-99); Potassium 4.1 mmol/L (3.5-5.1); Sodium 138 mmol/L (135-145); Total Protein 7.1 g/dl (6.3-8.2); eGFR > 60.00
[2024-11-16 19:48] LABS: COVID-19 Antigen Negative (Negative)
== END 2024-11-16 20:10 | disposition left against medical advice (07) ==
LOC: EMR 18:48
PROVIDERS: EMERGENCY PHYSICIAN Student in an Organized Health Care Education/Training Program
DX: R05.9 Cough, unspecified (principal); Z11.52 Encounter for screening for COVID-19; Z53.21 Procedure and treatment not carried out due to patient leaving prior to being seen by health care provider
CPT/HCPCS: 80053; 85025; 87502; 87811

== ENCOUNTER → 2024-12-30 06:58 | Outpatient (REF) | payer OTHER, SELFPAY | LOC: MRI 3T 06:58 | PROVIDERS: ATTENDING PHYSICIAN Nurse Practitioner Adult Health | DX: G45.9 Transient cerebral ischemic attack, unspecified (principal) | CPT/HCPCS: 70551 ==